=== PATIENT | male | born 1960 | race Two or more races ===

== ENCOUNTER 2020-11-20 16:20 | Emergency (ER) | payer MEDICAID ==
[~2020-11-20] VITALS: Ht 165.1 cm; Wt 68.2 kg
[~2020-11-20 16:20] MED LIST: APIX2.5T PO; ASCO500 PO; ASPI-1450 PO; CARV3 PO; DEXA4 PO; LEVO25TA9 PO; NITR0.4T52 SL; SIMV-261 PO; ZINC50TA80 PO
[2020-11-20 16:59] LABS: BASOPHILS % (AUTO) 0.7 % (0.0-2.0); EOSINOPHILS % (AUTO) 1.4 % (1.0-6.0); HEMATOCRIT 41.4 % (41-53); HEMOGLOBIN 13.6 g/dL (13.5-17.5); LYMPHOCYTES # (AUTO) 1.5 K/uL (1.0-4.8); LYMPHOCYTES % (AUTO) 21.8 % (22.0-44.0); MEAN CORPUSCULAR HEMOGLOBIN 33.2 pg (26.0-34.0); MEAN CORPUSCULAR HGB CONC 32.9 G/dL (31.0-37.0); MEAN CORPUSCULAR VOLUME 101 fL (80-100); MONOCYTES # (AUTO) 0.4 K/uL (0.1-1.0); MONOCYTES % (AUTO) 5.5 % (2.0-9.0); NEUTROPHILS # (AUTO) 4.9 K/uL (1.8-7.7); NEUTROPHILS % (AUTO) 70.6 % (40.0-70.0); PLATELET COUNT (AUTO) 198 K/uL (150-450); RED CELL DISTRIBUTION WIDTH 14.5 % (11.5-14.5)
[2020-11-20 17:09] LABS: ANION GAP 13 mmol/L (8-16); CALCIUM, TOTAL 8.9 mg/dL (8.8-10.5); CARBON DIOXIDE 23 mmol/L (22-29); CHLORIDE 102 mmol/L (98-107); CREATININE 0.98 mg/dL (0.60-1.30); GLOMERULAR FILTR. RATE CALC > 60 mL/min (>60); GLUCOSE,RANDOM 145 mg/dL (70-110); POTASSIUM 3.8 mmol/L (3.5-5.1); SODIUM SERUM 138 mmol/L (136-145); UREA NITROGEN, BLOOD 13 mg/dL (7-18)
[2020-11-20 17:24] LABS: B-TYPE NATRIURETIC PEPTIDE 13 pg/mL (0-100)
[2020-11-20 17:32] LABS: PROTHROMBIN TIME 10.9 SEC (9.4-11.6)
[2020-11-20 17:35] LABS: ALANINE AMINOTRANSFERASE 30 U/L (12-78); ALKALINE PHOSPHATASE 101 U/L (46-116); ASPARTATE AMINOTRANSFERASE 19 U/L (15-37); BILIRUBIN,TOTAL 0.3 mg/dL (0.1-1.0); CREATINE KINASE, TOTAL ONLY 162 U/L (39-308); TOTAL PROTEIN, SERUM 7.5 g/dL (6.4-8.2)
[2020-11-20 20:30] VITALS: BP 154/91
== END 2020-11-20 21:03 | disposition home or self-care (01) ==
LOC: EMS 16:20
DX: R07.89 Other chest pain (principal); R11.0 Nausea; I10 Essential (primary) hypertension; Z79.82 Long term (current) use of aspirin
CPT/HCPCS: 93005; 99285; 36415-L1; 36415-TC; 71045-TC

== ENCOUNTER 2022-07-07 05:55 | Emergency (ER) | payer MEDICAID ==
[~2022-07-07] VITALS: Ht 165.1 cm; Wt 87.0 kg
[~2022-07-07 05:55] MED LIST changes: -APIX2.5T PO; -ASCO500 PO; +ASPI-1444 PO; -ASPI-1450 PO; -DEXA4 PO; -NITR0.4T52 SL; -ZINC50TA80 PO
[2022-07-07] MEDS ORDERED: LISI-894 PO (06:23)
[2022-07-07] MEDS ORDERED: AMLO-258 PO (06:23)
[2022-07-07 06:47] LABS: HEMATOCRIT 40.7 % (41-53); HEMOGLOBIN 13.6 g/dL (13.5-17.5); LYMPHOCYTES # (AUTO) 1.4 K/uL (1.0-4.8); LYMPHOCYTES % (AUTO) 27.4 % (22.0-44.0); MEAN CORPUSCULAR HEMOGLOBIN 32.8 pg (26.0-34.0); MEAN CORPUSCULAR HGB CONC 33.5 G/dL (31.0-37.0); MEAN CORPUSCULAR VOLUME 98 fL (80-100); MONOCYTES # (AUTO) 0.5 K/uL (0.1-1.0); MONOCYTES % (AUTO) 9.1 % (2.0-9.0); NEUTROPHILS # (AUTO) 2.9 K/uL (1.8-7.7); NEUTROPHILS % (AUTO) 57.5 % (40.0-70.0); PLATELET COUNT (AUTO) 198 K/uL (150-450); RED BLOOD CELL COUNT(AUTO) 4.15 MIL/uL (4.50-5.90); RED CELL DISTRIBUTION WIDTH 13.5 % (11.5-14.5)
[2022-07-07 06:58] LABS: CREATININE 1.24 mg/dL (0.60-1.30); POTASSIUM 4.2 mmol/L (3.5-5.1)
[2022-07-07 07:11] LABS: ALBUMIN 3.9 g/dL (3.4-5.0); BILIRUBIN,TOTAL 0.3 mg/dL (0.1-1.0); THYROID STIMULATING HORMONE 4.3 uIU/mL (0.36-3.74); TOTAL PROTEIN, SERUM 7.4 g/dL (6.4-8.2)
[2022-07-07 08:10] VITALS: BP 145/62
== END 2022-07-07 08:12 | disposition home or self-care (01) ==
LOC: EMS 05:56
DX: R42 Dizziness and giddiness (principal); T44.3X5A Adverse effect of other parasympatholytics [anticholinergics and antimuscarinics] and spasmolytics, initial encounter; E78.00 Pure hypercholesterolemia, unspecified; I10 Essential (primary) hypertension; Y92.89 Other specified places as the place of occurrence of the external cause
CPT/HCPCS: 80053; 83880; 84443; 84484; 85025; 93005; 99285

== ENCOUNTER 2022-10-07 11:47 | Emergency (ER) | payer MEDICAID ==
[~2022-10-07] VITALS: Ht 160 cm; Wt 77.3 kg
[~2022-10-07 11:47] MED LIST changes: +AMLO-258 PO; +LISI-894 PO
[2022-10-07] MEDS ORDERED: HYDR12.54 PO (12:10)
[2022-10-07] MEDS ORDERED: CARV6.2534 PO (12:10)
[2022-10-07] MEDS ORDERED: ASPIRIN 81 MG CHEWABLE TABLET PO ONE (13:30)
[2022-10-07 13:59] LABS: ANION GAP 7 mmol/L (8-16); BASOPHILS % (AUTO) 0.5 % (0.0-2.0); CARBON DIOXIDE 27 mmol/L (22-29); CHLORIDE 100 mmol/L (98-107); CREATININE 1.06 mg/dL (0.60-1.30); EOSINOPHILS % (AUTO) 4.2 % (1.0-6.0); GLUCOSE,RANDOM 93 mg/dL (70-110); HEMATOCRIT 43.5 % (41-53); HEMOGLOBIN 14.6 g/dL (13.5-17.5); LYMPHOCYTES # (AUTO) 1.6 K/uL (1.0-4.8); LYMPHOCYTES % (AUTO) 24.1 % (22.0-44.0); MEAN CORPUSCULAR HEMOGLOBIN 32.6 pg (26.0-34.0); MEAN CORPUSCULAR HGB CONC 33.6 G/dL (31.0-37.0); MEAN CORPUSCULAR VOLUME 97 fL (80-100); MONOCYTES # (AUTO) 0.4 K/uL (0.1-1.0); MONOCYTES % (AUTO) 6.8 % (2.0-9.0); NEUTROPHILS # (AUTO) 4.2 K/uL (1.8-7.7); NEUTROPHILS % (AUTO) 64.4 % (40.0-70.0); PLATELET COUNT (AUTO) 190 K/uL (150-450); POTASSIUM 4.3 mmol/L (3.5-5.1); RED BLOOD CELL COUNT(AUTO) 4.48 MIL/uL (4.50-5.90); RED CELL DISTRIBUTION WIDTH 14.2 % (11.5-14.5); SODIUM SERUM 134 mmol/L (136-145); UREA NITROGEN, BLOOD 12 mg/dL (7-18)
[2022-10-07 14:01] LABS: GLOMERULAR FILTR. RATE CALC > 60 mL/min (>60)
[2022-10-07 14:22] LABS: B-TYPE NATRIURETIC PEPTIDE 10 pg/mL (0-100)
[2022-10-07 14:24] LABS: ALANINE AMINOTRANSFERASE 25 U/L (12-78); ALBUMIN 4.3 g/dL (3.4-5.0); ALKALINE PHOSPHATASE 101 U/L (46-116); ASPARTATE AMINOTRANSFERASE 20 U/L (15-37); BILIRUBIN,TOTAL 0.6 mg/dL (0.1-1.0); CREATINE KINASE, TOTAL ONLY 88 U/L (39-308); TOTAL PROTEIN, SERUM 8.4 g/dL (6.4-8.2)
[2022-10-07 14:54] VITALS: BP 133/82
== END 2022-10-07 16:32 | disposition home or self-care (01) ==
LOC: EMS 12:16
DX: R07.9 Chest pain, unspecified (principal); E78.00 Pure hypercholesterolemia, unspecified; I10 Essential (primary) hypertension
CPT/HCPCS: 71045; 80053; 82550; 83880; 84484; 85025; 93005; 99285; 36415-L1; 36415-TC

== ENCOUNTER 2023-07-13 10:45 | Emergency (ER) | payer MEDICAID ==
[~2023-07-13] VITALS: Ht 165.1 cm; Wt 84.1 kg
[~2023-07-13 10:45] MED LIST changes: +CARV6.2534 PO; +HYDR12.54 PO; -LEVO25TA9 PO; -LISI-894 PO; -SIMV-261 PO
[2023-07-13 10:52] VITALS: TEMP 98.5
[2023-07-13] MEDS ORDERED: FAMOTIDINE 20 MG/2 ML VIAL IVP ONE (11:15)
[2023-07-13] MEDS ORDERED: ONDANSETRON HCL 4 MG/2 ML VIAL IVP ONE (11:15)
[2023-07-13] MEDS ORDERED: MAG HYDROX/ALUMINUM HYD/SIMETH 30 ML SUSPENSION UDCUP PO ONE (11:15)
[2023-07-13] MEDS ORDERED: SODIUM CHLORIDE 0.9% 1,000 ML IV ONE (11:15)
[2023-07-13] MEDS ORDERED: ACETAMINOPHEN 500 MG TABLET PO ONE (11:15)
[2023-07-13 11:34] LABS: BASOPHILS % (AUTO) 1.3 % (0.0-2.0); EOSINOPHILS % (AUTO) 3.2 % (1.0-6.0); HEMATOCRIT 42.8 % (41-53); HEMOGLOBIN 14.4 g/dL (13.5-17.5); LYMPHOCYTES # (AUTO) 1.4 K/uL (1.0-4.8); LYMPHOCYTES % (AUTO) 26.5 % (22.0-44.0); MEAN CORPUSCULAR HEMOGLOBIN 32.9 pg (26.0-34.0); MEAN CORPUSCULAR HGB CONC 33.7 G/dL (31.0-37.0); MEAN CORPUSCULAR VOLUME 98 fL (80-100); MONOCYTES # (AUTO) 0.4 K/uL (0.1-1.0); MONOCYTES % (AUTO) 7.1 % (2.0-9.0); NEUTROPHILS # (AUTO) 3.3 K/uL (1.8-7.7); NEUTROPHILS % (AUTO) 61.9 % (40.0-70.0); PLATELET COUNT (AUTO) 203 K/uL (150-450); RED BLOOD CELL COUNT(AUTO) 4.39 MIL/uL (4.50-5.90); RED CELL DISTRIBUTION WIDTH 13.9 % (11.5-14.5); WHITE BLOOD COUNT (AUTO) 5.3 K/uL (4.5-11.0)
[2023-07-13 11:46] LABS: ANION GAP 11 mmol/L (8-16); CALCIUM, TOTAL 9.3 mg/dL (8.8-10.5); CARBON DIOXIDE 24 mmol/L (22-29); CHLORIDE 98 mmol/L (98-107); CREATININE 1.01 mg/dL (0.60-1.30); GLOMERULAR FILTR. RATE CALC > 60 mL/min (>60); GLUCOSE,RANDOM 113 mg/dL (70-110); POTASSIUM 3.5 mmol/L (3.5-5.1); SODIUM SERUM 133 mmol/L (136-145); UREA NITROGEN, BLOOD 17 mg/dL (7-18)
[2023-07-13 11:51] LABS: TROPONIN I-HIGH SENSITIVITY 9 ng/L (<76)
[2023-07-13 11:59] LABS: B-TYPE NATRIURETIC PEPTIDE 6 pg/mL (0-100)
[2023-07-13 12:09] LABS: ALANINE AMINOTRANSFERASE 26 U/L (12-78); ALBUMIN 4.2 g/dL (3.4-5.0); ALKALINE PHOSPHATASE 95 U/L (46-116); ASPARTATE AMINOTRANSFERASE 19 U/L (15-37); BILIRUBIN,TOTAL 0.6 mg/dL (0.1-1.0); CREATINE KINASE, TOTAL ONLY 138 U/L (39-308); LIPASE 28 U/L (16-77)
[2023-07-13 13:14] VITALS: BP 149/74; PULSE 96; RESP 18
[2023-07-13] MEDS ORDERED: ONDA-104 PO (13:23)
== END 2023-07-13 13:57 | disposition home or self-care (01) ==
LOC: EMS 11:07
DX: R11.2 Nausea with vomiting, unspecified (principal); R51.9 Headache, unspecified; E78.00 Pure hypercholesterolemia, unspecified; I10 Essential (primary) hypertension
CPT/HCPCS: 99285; 96374; 70450; 71045; 96361; 96375; 80053; 82550; 83690; 83880; 84484; 85025; 36415; 93005; J3490; J2405; J7030

== ENCOUNTER 2024-01-28 04:30 | Emergency (ER) | payer MEDICAID ==
[~2024-01-28] VITALS: Ht 165.1 cm; Wt 84.1 kg
[~2024-01-28 04:30] MED LIST changes: -ASPI-1444 PO; -CARV3 PO; -CARV6.2534 PO; -HYDR12.54 PO; +ONDA-104 PO
[2024-01-28] MEDS ORDERED: LISI40TA9 PO (04:37)
[2024-01-28] MEDS ORDERED: HYDR12.56 PO (04:37)
[2024-01-28] MEDS ORDERED: ASPI-1444 PO (04:37)
[2024-01-28] MEDS ORDERED: CARV6.2534 PO (04:37)
[2024-01-28 04:58] LABS: BASOPHILS % (AUTO) 1.1 % (0.0-2.0); EOSINOPHILS % (AUTO) 5.9 % (1.0-6.0); HEMATOCRIT 41.7 % (41-53); HEMOGLOBIN 14.1 g/dL (13.5-17.5); LYMPHOCYTES # (AUTO) 2.4 K/uL (1.0-4.8); LYMPHOCYTES % (AUTO) 38.5 % (22.0-44.0); MEAN CORPUSCULAR HEMOGLOBIN 33.4 pg (26.0-34.0); MEAN CORPUSCULAR HGB CONC 33.9 G/dL (31.0-37.0); MEAN CORPUSCULAR VOLUME 99 fL (80-100); MONOCYTES # (AUTO) 0.5 K/uL (0.1-1.0); MONOCYTES % (AUTO) 8.4 % (2.0-9.0); NEUTROPHILS # (AUTO) 2.8 K/uL (1.8-7.7); NEUTROPHILS % (AUTO) 46.1 % (40.0-70.0); PLATELET COUNT (AUTO) 195 K/uL (150-450); RED BLOOD CELL COUNT(AUTO) 4.23 MIL/uL (4.50-5.90); WHITE BLOOD COUNT (AUTO) 6.1 K/uL (4.5-11.0)
[2024-01-28 05:07] LABS: ANION GAP 8 mmol/L (8-16); CALCIUM, TOTAL 8.7 mg/dL (8.8-10.5); CARBON DIOXIDE 28 mmol/L (22-29); CHLORIDE 102 mmol/L (98-107); GLOMERULAR FILTR. RATE CALC > 60 mL/min (>60); GLUCOSE,RANDOM 124 mg/dL (70-110); POTASSIUM 4.1 mmol/L (3.5-5.1); SODIUM SERUM 138 mmol/L (136-145); UREA NITROGEN, BLOOD 19 mg/dL (7-18)
[2024-01-28 05:14] LABS: PROTHROMBIN TIME 10.4 SEC (9.4-11.6)
[2024-01-28 05:15] LABS: TROPONIN I-HIGH SENSITIVITY 8 ng/L (<76)
[2024-01-28 05:28] LABS: B-TYPE NATRIURETIC PEPTIDE 7 pg/mL (0-100)
[2024-01-28 05:32] LABS: ALANINE AMINOTRANSFERASE 24 U/L (12-78); ALBUMIN 3.9 g/dL (3.4-5.0); ALKALINE PHOSPHATASE 124 U/L (46-116); ASPARTATE AMINOTRANSFERASE 21 U/L (15-37); BILIRUBIN,TOTAL 0.4 mg/dL (0.1-1.0); CREATINE KINASE, TOTAL ONLY 144 U/L (39-308); TOTAL PROTEIN, SERUM 7.5 g/dL (6.4-8.2)
[2024-01-28] MEDS ORDERED: LORA-1000 PO (06:41)
[2024-01-28] MEDS: LORazepam 1 MG TABLET PO ONE (06:49)
[2024-01-28 06:53] VITALS: BP 137/82; PULSE 78; RESP 16; TEMP 98.3
== END 2024-01-28 07:04 | disposition home or self-care (01) ==
LOC: EMS 04:30
DX: G47.00 Insomnia, unspecified (principal); F41.9 Anxiety disorder, unspecified; E78.00 Pure hypercholesterolemia, unspecified; I10 Essential (primary) hypertension
CPT/HCPCS: 71045; 80053; 82550; 83880; 84484; 85025; 85610; 85730; 93005; 99285; 36415-L1; 36415-TC

== ENCOUNTER 2024-07-19 05:49 | Emergency (ER) | payer MEDICAID ==
[~2024-07-19] VITALS: Ht 154.9 cm; Wt 81.8 kg
[~2024-07-19 05:49] MED LIST changes: -AMLO-258 PO; +ASPI-1444 PO; +CARV6.2534 PO; +HYDR12.56 PO; +LISI40TA9 PO; +LORA-1000 PO; -ONDA-104 PO
[2024-07-19 05:54] VITALS: TEMP 97.9
[2024-07-19 06:26] LABS: EOSINOPHILS % (AUTO) 5.9 % (1.0-6.0); HEMATOCRIT 42.5 % (41-53); HEMOGLOBIN 14.5 g/dL (13.5-17.5); MEAN CORPUSCULAR HEMOGLOBIN 33.9 pg (26.0-34.0); MEAN CORPUSCULAR VOLUME 100 fL (80-100); MONOCYTES # (AUTO) 0.4 K/uL (0.1-1.0); MONOCYTES % (AUTO) 7.7 % (2.0-9.0); NEUTROPHILS # (AUTO) 2.6 K/uL (1.8-7.7); NEUTROPHILS % (AUTO) 48.4 % (40.0-70.0); PLATELET COUNT (AUTO) 204 K/uL (150-450); RED BLOOD CELL COUNT(AUTO) 4.26 MIL/uL (4.50-5.90); RED CELL DISTRIBUTION WIDTH 13.6 % (11.5-14.5); WHITE BLOOD COUNT (AUTO) 5.4 K/uL (4.5-11.0)
[2024-07-19 06:34] LABS: ANION GAP 8 mmol/L (8-16); CALCIUM, TOTAL 8.9 mg/dL (8.8-10.5); CARBON DIOXIDE 27 mmol/L (22-29); CHLORIDE 101 mmol/L (98-107); CREATININE 1.16 mg/dL (0.60-1.30); GLOMERULAR FILTR. RATE CALC > 60 mL/min (>60); GLUCOSE,RANDOM 117 mg/dL (70-110); POTASSIUM 4.4 mmol/L (3.5-5.1); SODIUM SERUM 136 mmol/L (136-145); UREA NITROGEN, BLOOD 24 mg/dL (7-18)
[2024-07-19 06:43] LABS: TROPONIN I-HIGH SENSITIVITY 9 ng/L (<76)
[2024-07-19] MEDS: ACETAMINOPHEN 325 MG TABLET PO ONE (07:30)
[2024-07-19] MEDS: CARVEDILOL 6.25 MG TABLET PO ONE (07:31)
[2024-07-19] MEDS: ASPIRIN 325 MG TABLET PO ONE (07:31)
[2024-07-19 08:36] VITALS: BP 160/96; PULSE 72; RESP 16; O2SAT 96
[2024-07-19 08:45] LABS: TROPONIN I-HIGH SENSITIVITY 12 ng/L (<76)
[2024-07-19] MEDS ORDERED: CARV6.2534 PO (09:25)
== END 2024-07-19 09:25 | disposition home or self-care (01) ==
LOC: EMS 05:50
DX: I10 Essential (primary) hypertension (principal); R07.89 Other chest pain; E78.00 Pure hypercholesterolemia, unspecified; Z79.82 Long term (current) use of aspirin
CPT/HCPCS: 71045; 80048; 83735; 84484; 85025; 93005; 99285; 36415-L1; 36415-TC